=== PATIENT | female | born 1960 | race Caucasian/White ===

== ENCOUNTER 2016-07-26 09:21 | Emergency (ER) | payer SELFPAY ==
[~2016-07-26] VITALS: Ht 170.2 cm; Wt 65.8 kg
[2016-07-26 10:12] VITALS: BP 170/95
== END 2016-07-26 10:29 | disposition other institution (70) ==
LOC: ED 09:21
DX: I10 Essential (primary) hypertension (principal); I34.0 Nonrheumatic mitral (valve) insufficiency; F17.200 Nicotine dependence, unspecified, uncomplicated; M79.7 Fibromyalgia; Z98.51 Tubal ligation status; Z79.899 Other long term (current) drug therapy

== ENCOUNTER 2016-07-26 09:21 | Emergency (ER) | payer OTHER | END 2016-07-26 10:29 | disposition other institution (70) | LOC: ED 09:21 | DX: Z02.89 Encounter for other administrative examinations (principal) ==